=== PATIENT | female | born 1970 | race Caucasian/White ===

== ENCOUNTER 2025-02-05 17:59 | Emergency (ER) | payer OTHER ==
[~2025-02-05] VITALS: Ht 157.5 cm; Wt 65.0 kg
[2025-02-05 18:02] VITALS: TEMP 97.5
[2025-02-05] MEDS ORDERED: METF-1211 PO (18:10)
[2025-02-05] MEDS ORDERED: LISI-894 PO (18:13)
[2025-02-05] MEDS ORDERED: AMLO-257 PO (18:13)
[2025-02-05 18:25] LABS: PLATELET COUNT (AUTO) 220 K/uL (150-450); RED BLOOD CELL COUNT(AUTO) 4.53 MIL/uL (4.00-5.20); RED CELL DISTRIBUTION WIDTH 13.2 % (11.5-14.5); WHITE BLOOD COUNT (AUTO) 6.2 K/uL (4.5-11.0)
[2025-02-05 18:33] LABS: CALCIUM, TOTAL 8.9 mg/dL (8.8-10.5); CREATININE 0.54 mg/dL (0.60-1.30); GLOMERULAR FILTR. RATE CALC > 60 mL/min (>60); GLUCOSE,RANDOM 262 mg/dL (70-110); SODIUM SERUM 137 mmol/L (136-145); UREA NITROGEN, BLOOD 10 mg/dL (7-18)
[2025-02-05 18:42] LABS: TROPONIN I-HIGH SENSITIVITY 34 ng/L (<51)
[2025-02-05 18:49] VITALS: BP 128/70; PULSE 70; RESP 18; O2SAT 98
== END 2025-02-05 20:04 | disposition home or self-care (01) ==
LOC: EMS 17:59
DX: E11.65 Type 2 diabetes mellitus with hyperglycemia (principal); I10 Essential (primary) hypertension; F17.210 Nicotine dependence, cigarettes, uncomplicated; R42 Dizziness and giddiness; R11.2 Nausea with vomiting, unspecified; H53.8 Other visual disturbances; Z79.899 Other long term (current) drug therapy
CPT/HCPCS: 71045; 80048; 82962; 84484; 85025; 93005; 99285; 36415-L1; 36415-TC